=== PATIENT | female | born 1975 ===

== ENCOUNTER 2021-04-05 14:33 | Inpatient (IN) | payer BC ==
[~2021-04-05] VITALS: Ht 154.9 cm; Wt 75.0 kg
[2021-04-05] MEDS ORDERED: methylPREDNISolone SOD SUCC 125 MG/2 ML VL IV ONE (15:15)
[2021-04-05 16:04] LABS: Basophils # (auto) 0 10 ^3/uL (0-0.2); Basophils % (auto) 0.1 % (0.0-2.0); Eosinophils # (auto) 0 10 ^3/uL (0-0.8); Hematocrit 41.3 % (36.0-46.0); Hemoglobin 13.8 g/dL (12.2-16.2); Lymphocytes # (auto) 0.7 10 ^3/uL (0.4-5.4); Mean Corpuscular Hemoglobin 29.8 pg (28.0-32.0); Mean Corpuscular Hgb Conc. 33.5 g/dL (32.0-36.0); Mean Corpuscular Volume 88.8 fL (80.0-100.0); Monocytes # (auto) 0.4 10 ^3/uL (0-1.3); Monocytes % (auto) 5.5 % (0.0-12.0); Neutrophils # (auto) 6.3 10 ^3/uL (1.6-8.6); Neutrophils % (auto) 84.4 % (37.0-80.0); Nucleated Red Blood Cells % 0.2 %; Red Blood Cells 4.65 10^6/uL (4.0-5.20); White Blood Cell 7.4 10^3/uL (4.4-10.8)
[2021-04-05 16:27] LABS: Albumin 3.2 g/dL (3.4-5.0); Calcium 8.1 mg/dL (8.5-10.1); Potassium 3.7 mmol/L (3.5-5.1)
[2021-04-05 16:35] LABS: BUN/Creatinine Ratio 20.9; Bilirubin, Total 0.7 mg/dL (0.2-1.0); CRP High Sensitivity 1.18 mg/dL (< 0.3); Total Protein 7.3 g/dL (6.4-8.2)
[2021-04-05] MEDS ORDERED: AZITHROMYCIN 500MG/ 250ML 250 ML IV ONE (17:00)
[2021-04-05] MEDS ORDERED: CHOLECALCIFEROL (VITD3) 2,000 UNIT CAP/TAB PO ONE (17:00)
[2021-04-05] MEDS ORDERED: ZINC SULFATE 220mg CAP or TAB PO ONE (17:00)
[2021-04-05] MEDS ORDERED: ASCORBIC ACID 500 MG TAB PO ONE (17:00)
[2021-04-05] MEDS ORDERED: LACTULOSE 20Gm/30ML SOLN PO PRN (19:00)
[2021-04-05] MEDS ORDERED: diphenhdrAMINE HCL 50 MG/1 ML VL IV PRN (19:00)
[2021-04-05] MEDS ORDERED: DEXTROSE (50%) 50ML SYRG IV PRN (19:00)
[2021-04-05] MEDS ORDERED: ACETAMINOPHEN 500 MG TAB PO PRN (19:00)
[2021-04-05] MEDS ORDERED: PROMETHAZINE HCL 25 MG/ML 1ML IV PRN (19:00)
[2021-04-05] MEDS ORDERED: NITROGLYCERIN 0.4 MG SL TAB SL PRN (19:00)
[2021-04-05] MEDS ORDERED: MORPHINE SULFATE INJECTION 2 MG/ML SYRG IV PRN (19:00)
[2021-04-05] MEDS: SODIUM CHLORIDE 0.9% 1,000 ML IV SCH (20:20)
[2021-04-05] MEDS: cefTRIAXone 1GM/50ML D5W 50 ML IV SCH ×2 (20:28→23:00)
[2021-04-05] MEDS: BUDESONIDE (INHALATION) 180 MCG IH IN SCH (22:00)
[2021-04-05] MEDS: ACCU-CHEK COMFORT CURVE STRIP VI SCH (22:10)
[2021-04-05] MEDS: ENOXAPARIN SOD 40 MG/0.4 ML SYRINGE SC SCH (22:10)
[2021-04-05] MEDS: InsuLIN REG 1unit/0.01ml Soln (100units/ml) SC SCH (22:15)
[2021-04-06 00:54] VITALS: BP 148/78
[2021-04-06] MEDS: traMADol HCL 50 MG TAB PO PRN ×2 (01:02→06:15)
[2021-04-06] MEDS: TEMAZEPAM 15 MG CAP PO PRN (02:00)
[2021-04-06 07:20] LABS: Basophils # (auto) 0 10 ^3/uL (0-0.2); Basophils % (auto) 0.1 % (0.0-2.0); Eosinophils # (auto) 0 10 ^3/uL (0-0.8); Hematocrit 41.4 % (36.0-46.0); Lymphocytes # (auto) 0.5 10 ^3/uL (0.4-5.4); Lymphocytes % (auto) 9.8 % (10.0-50.0); Mean Corpuscular Hemoglobin 29.8 pg (28.0-32.0); Mean Corpuscular Hgb Conc. 33.9 g/dL (32.0-36.0); Mean Corpuscular Volume 88.1 fL (80.0-100.0); Monocytes # (auto) 0.3 10 ^3/uL (0-1.3); Monocytes % (auto) 5.2 % (0.0-12.0); Neutrophils # (auto) 4.7 10 ^3/uL (1.6-8.6); Neutrophils % (auto) 84.9 % (37.0-80.0); Nucleated Red Blood Cells % 0.2 %; Red Cell Distribution Width 14.1 % (11.8-14.3); White Blood Cell 5.6 10^3/uL (4.4-10.8)
[2021-04-06 07:21] LABS: Calcium 8.2 mg/dL (8.5-10.1); Potassium 3.8 mmol/L (3.5-5.1)
[2021-04-06 07:24] LABS: BUN/Creatinine Ratio 18.5; Bilirubin, Total 0.7 mg/dL (0.2-1.0); Total Protein 7.2 g/dL (6.4-8.2)
[2021-04-06] MEDS: ACCU-CHEK COMFORT CURVE STRIP VI SCH ×4 (07:58→21:28)
[2021-04-06] MEDS: InsuLIN REG 1unit/0.01ml Soln (100units/ml) SC SCH ×4 (08:17→22:22)
[2021-04-06] MEDS: ENOXAPARIN SOD 40 MG/0.4 ML SYRINGE SC SCH ×2 (10:06→21:27)
[2021-04-06] MEDS: SODIUM CHLORIDE 0.9% 1,000 ML IV SCH (10:06)
[2021-04-06] MEDS: DexAMETHasone SOD PHOS 10MG/1ML VIAL INJ IV SCH (10:06)
[2021-04-06] MEDS: ZINC SULFATE 220mg CAP or TAB PO SCH (10:06)
[2021-04-06] MEDS: CHOLECALCIFEROL (VITD3) 2,000 UNIT CAP/TAB PO SCH (10:06)
[2021-04-06] MEDS: ASCORBIC ACID 1,000 MG TAB PO SCH (10:06)
[2021-04-06] MEDS: IVERMECTIN 3 MG TAB PO SCH (11:18)
[2021-04-06] MEDS: BUDESONIDE (INHALATION) 180 MCG IH IN SCH ×2 (11:28→19:20)
[2021-04-06] MEDS: ALBUTEROL SULF HFA 90MCG INH 200DOSE IN PRN ×2 (11:28→19:20)
[2021-04-06] MEDS ORDERED: ALBU108A5 IN (11:44)
[2021-04-06] MEDS ORDERED: AMLO-496 PO (11:44)
[2021-04-06 14:05] LABS: Hepatitis A Ab IgM Negative
[2021-04-06] MEDS ORDERED: IOHEXOL 350 MG/ML 100ML IJ ONE (14:19)
[2021-04-06 14:21] LABS: Hepatitis B Core IgM Negative
[2021-04-06 14:28] LABS: Hepatitis C Antibody Negative (Negative)
[2021-04-06] MEDS ORDERED: REMDESIVIR 200 MG in NS 210ml LOADING DOSE ADULT IV ONE (15:00)
[2021-04-06 15:52] VITALS: BP 122/79
[2021-04-06] MEDS: HYDROcodone-ACET 5/325MG TAB PO PRN ×2 (16:50→22:21)
[2021-04-06 20:00] VITALS: BP 117/55
[2021-04-06] MEDS: cefTRIAXone 1GM/50ML D5W 50 ML IV SCH (21:27)
[2021-04-06 22:00] VITALS: BP 117/45
[2021-04-06] MEDS ORDERED: ENOXAPARIN SOD 80 MG/0.8ML SYRINGE SC SCH (22:00)
[2021-04-06] MEDS ORDERED: TOCILIZUMAB 400 MG in SODIUM CHL 0.9% 80 ML IV SCH (22:00)
[2021-04-06] MEDS: AZITHROMYCIN 500MG/ 250ML 250 ML IV SCH (22:21)
[2021-04-07] MEDS: HYDROcodone-ACET 5/325MG TAB PO PRN ×4 (03:40→23:30)
[2021-04-07 05:00] VITALS: BP 137/68
[2021-04-07] MEDS: ACCU-CHEK COMFORT CURVE STRIP VI SCH ×4 (06:14→23:00)
[2021-04-07] MEDS: InsuLIN REG 1unit/0.01ml Soln (100units/ml) SC SCH ×4 (06:15→23:00)
[2021-04-07 06:27] LABS: Potassium 3.3 mmol/L (3.5-5.1)
[2021-04-07 06:43] LABS: Albumin 2.8 g/dL (3.4-5.0); BUN/Creatinine Ratio 19.6; Bilirubin, Total 0.7 mg/dL (0.2-1.0); Calcium 8.1 mg/dL (8.5-10.1); Total Protein 6.8 g/dL (6.4-8.2)
[2021-04-07] MEDS: BUDESONIDE (INHALATION) 180 MCG IH IN SCH ×2 (06:49→21:48)
[2021-04-07] MEDS: ALBUTEROL SULF HFA 90MCG INH 200DOSE IN PRN ×2 (06:49→21:48)
[2021-04-07] MEDS ORDERED: ALPR0.5T7 PO (06:59)
[2021-04-07] MEDS: DexAMETHasone SOD PHOS 10MG/1ML VIAL INJ IV SCH (08:46)
[2021-04-07] MEDS: ENOXAPARIN SOD 40 MG/0.4 ML SYRINGE SC SCH ×2 (08:46→23:30)
[2021-04-07] MEDS: ZINC SULFATE 220mg CAP or TAB PO SCH (08:47)
[2021-04-07] MEDS: CHOLECALCIFEROL (VITD3) 2,000 UNIT CAP/TAB PO SCH (08:48)
[2021-04-07] MEDS: ASCORBIC ACID 1,000 MG TAB PO SCH (08:48)
[2021-04-07] MEDS: IVERMECTIN 3 MG TAB PO SCH (08:48)
[2021-04-07 09:00] VITALS: BP 107/59
[2021-04-07] MEDS ORDERED: LORazepam 0.5 MG TAB PO PRN (09:15)
[2021-04-07] MEDS ORDERED: PANTOPRAZOLE 40 MG TAB PO ONE (10:45)
[2021-04-07] MEDS ORDERED: REMDESIVIR PER PHARMACY 0 ML IV SCH (11:00)
[2021-04-07] MEDS: ALPRAZolam 0.5 MG TAB PO PRN (11:11)
[2021-04-07 12:30] VITALS: BP 107/68
[2021-04-07] MEDS ORDERED: REMDESIVIR 200 MG in NS 210ml LOADING DOSE ADULT IV ONE (13:00)
[2021-04-07] MEDS ORDERED: REMDESIVIR 100mg 100 MG in SODIUM CHL 0.9% 230 ML IV SCH (15:00)
[2021-04-07 16:53] VITALS: BP 117/64
[2021-04-07 20:36] VITALS: BP 106/56
[2021-04-07] MEDS: cefTRIAXone 1GM/50ML D5W 50 ML IV SCH (23:00)
[2021-04-07] MEDS: INSULIN LANTUS (GLARGINE) 1 /0.01ml (100units/ml) SC SCH (23:00)
[2021-04-07] MEDS: AZITHROMYCIN 500MG/ 250ML 250 ML IV SCH (23:30)
[2021-04-08] MEDS: ALPRAZolam 0.5 MG TAB PO PRN ×2 (01:15→09:49)
[2021-04-08 04:15] VITALS: BP 100/59
[2021-04-08] MEDS: HYDROcodone-ACET 5/325MG TAB PO PRN ×3 (05:12→22:29)
[2021-04-08] MEDS: guaiFENesin-DM 100/10mg/5ml SYR PO PRN ×2 (06:39→12:39)
[2021-04-08] MEDS: ACCU-CHEK COMFORT CURVE STRIP VI SCH ×4 (06:39→21:46)
[2021-04-08] MEDS: InsuLIN REG 1unit/0.01ml Soln (100units/ml) SC SCH ×4 (06:40→22:33)
[2021-04-08] MEDS: ALBUTEROL SULF HFA 90MCG INH 200DOSE IN PRN ×2 (07:19→19:11)
[2021-04-08] MEDS: BUDESONIDE (INHALATION) 180 MCG IH IN SCH ×2 (07:20→19:10)
[2021-04-08 08:01] LABS: Albumin 2.9 g/dL (3.4-5.0); BUN/Creatinine Ratio 16.7; Calcium 7.7 mg/dL (8.5-10.1); Potassium 3.4 mmol/L (3.5-5.1)
[2021-04-08 08:38] VITALS: BP 111/81
[2021-04-08] MEDS: ENOXAPARIN SOD 40 MG/0.4 ML SYRINGE SC SCH ×2 (09:47→21:46)
[2021-04-08] MEDS: DexAMETHasone SOD PHOS 10MG/1ML VIAL INJ IV SCH (09:47)
[2021-04-08] MEDS: CHOLECALCIFEROL (VITD3) 2,000 UNIT CAP/TAB PO SCH (09:48)
[2021-04-08] MEDS: IVERMECTIN 3 MG TAB PO SCH (09:48)
[2021-04-08] MEDS: POTASSIUM CHL 20 Meq TABLET PO SCH (09:48)
[2021-04-08] MEDS: PANTOPRAZOLE 40 MG TAB PO SCH (09:48)
[2021-04-08] MEDS: FUROSEMIDE 20 MG TAB PO SCH (10:00)
[2021-04-08 12:59] VITALS: BP 123/69
[2021-04-08] MEDS: REMDESIVIR 100mg 100 MG in SODIUM CHL 0.9% 230 ML IV SCH (15:13)
[2021-04-08] MEDS ORDERED: HYDROcodone-ACET 5/325MG TAB PO PRN (15:45)
[2021-04-08] MEDS ORDERED: HYDROcodone-ACET 5/325MG TAB ONE (15:50)
[2021-04-08] MEDS ORDERED: HYDR-4072 PO (17:17)
[2021-04-08 17:20] VITALS: BP 117/68
[2021-04-08 21:15] VITALS: BP 117/69
[2021-04-08] MEDS: cefTRIAXone 1GM/50ML D5W 50 ML IV SCH (21:45)
[2021-04-08] MEDS: INSULIN LANTUS (GLARGINE) 1 /0.01ml (100units/ml) SC SCH (22:34)
[2021-04-08] MEDS: AZITHROMYCIN 500MG/ 250ML 250 ML IV SCH (23:22)
[2021-04-09] MEDS: guaiFENesin-DM 100/10mg/5ml SYR PO PRN ×3 (04:05→21:50)
[2021-04-09 04:41] VITALS: BP 108/58
[2021-04-09] MEDS: ACCU-CHEK COMFORT CURVE STRIP VI SCH ×4 (06:03→21:53)
[2021-04-09] MEDS: InsuLIN REG 1unit/0.01ml Soln (100units/ml) SC SCH ×4 (06:05→21:52)
[2021-04-09] MEDS: HYDROcodone-ACET 5/325MG TAB PO PRN ×3 (06:10→21:50)
[2021-04-09] MEDS: THROAT LOZENGES(CEPASTAT) MT PRN (06:11)
[2021-04-09] MEDS: BUDESONIDE (INHALATION) 180 MCG IH IN SCH ×2 (07:35→20:17)
[2021-04-09] MEDS: ALBUTEROL SULF HFA 90MCG INH 200DOSE IN PRN ×2 (07:35→23:23)
[2021-04-09 09:00] VITALS: BP 100/65
[2021-04-09] MEDS: DexAMETHasone SOD PHOS 10MG/1ML VIAL INJ IV SCH (09:00)
[2021-04-09] MEDS: POTASSIUM CHL 20 Meq TABLET PO SCH (09:00)
[2021-04-09] MEDS: PANTOPRAZOLE 40 MG TAB PO SCH (09:01)
[2021-04-09] MEDS: CHOLECALCIFEROL (VITD3) 2,000 UNIT CAP/TAB PO SCH (09:01)
[2021-04-09] MEDS: FUROSEMIDE 20 MG TAB PO SCH (09:01)
[2021-04-09] MEDS: ENOXAPARIN SOD 40 MG/0.4 ML SYRINGE SC SCH ×2 (09:02→21:20)
[2021-04-09] MEDS: IVERMECTIN 3 MG TAB PO SCH (09:02)
[2021-04-09] MEDS ORDERED: INSULIN LANTUS (GLARGINE) 1 /0.01ml (100units/ml) SC SCH (10:00)
[2021-04-09] MEDS: REMDESIVIR 100mg 100 MG in SODIUM CHL 0.9% 230 ML IV SCH (15:17)
[2021-04-09 16:59] VITALS: BP 126/86
[2021-04-09] MEDS ORDERED: DEXTROSE (50%) 50ML SYRG IV PRN (19:45)
[2021-04-09] MEDS: cefTRIAXone 1GM/50ML D5W 50 ML IV SCH (21:19)
[2021-04-09] MEDS: INSULIN LANTUS (GLARGINE) 1 /0.01ml (100units/ml) SC SCH (21:52)
[2021-04-09 22:00] VITALS: BP 104/72
[2021-04-09] MEDS: AZITHROMYCIN 500MG/ 250ML 250 ML IV SCH (23:06)
[2021-04-10] MEDS: guaiFENesin-DM 100/10mg/5ml SYR PO PRN ×2 (03:41→10:03)
[2021-04-10] MEDS: HYDROcodone-ACET 5/325MG TAB PO PRN ×3 (03:41→19:22)
[2021-04-10 05:00] VITALS: BP 120/59
[2021-04-10 06:46] LABS: Basophils # (auto) 0 10 ^3/uL (0-0.2); Eosinophils # (auto) 0 10 ^3/uL (0-0.8); Eosinophils % (auto) 0.5 % (0.0-7.0); Hematocrit 39.4 % (36.0-46.0); Hemoglobin 13.3 g/dL (12.2-16.2); Lymphocytes # (auto) 0.7 10 ^3/uL (0.4-5.4); Lymphocytes % (auto) 8.6 % (10.0-50.0); Mean Corpuscular Hemoglobin 29.8 pg (28.0-32.0); Mean Corpuscular Hgb Conc. 33.7 g/dL (32.0-36.0); Mean Corpuscular Volume 88.4 fL (80.0-100.0); Monocytes # (auto) 0.3 10 ^3/uL (0-1.3); Monocytes % (auto) 3.1 % (0.0-12.0); Neutrophils # (auto) 7.2 10 ^3/uL (1.6-8.6); Neutrophils % (auto) 87.8 % (37.0-80.0); Red Blood Cells 4.46 10^6/uL (4.0-5.20); Red Cell Distribution Width 14.3 % (11.8-14.3); White Blood Cell 8.2 10^3/uL (4.4-10.8)
[2021-04-10] MEDS: ACCU-CHEK COMFORT CURVE STRIP VI SCH ×4 (06:49→22:00)
[2021-04-10] MEDS: InsuLIN REG 1unit/0.01ml Soln (100units/ml) SC SCH ×4 (06:51→22:07)
[2021-04-10 06:57] LABS: Albumin 2.6 g/dL (3.4-5.0); Calcium 8.2 mg/dL (8.5-10.1); Potassium 4.1 mmol/L (3.5-5.1)
[2021-04-10 07:24] LABS: BUN/Creatinine Ratio 16.7; Bilirubin, Total 0.4 mg/dL (0.2-1.0); Total Protein 6.2 g/dL (6.4-8.2)
[2021-04-10 09:27] VITALS: BP 99/54
[2021-04-10] MEDS: DexAMETHasone SOD PHOS 10MG/1ML VIAL INJ IV SCH (10:00)
[2021-04-10] MEDS: POTASSIUM CHL 20 Meq TABLET PO SCH (10:00)
[2021-04-10] MEDS: CHOLECALCIFEROL (VITD3) 2,000 UNIT CAP/TAB PO SCH (10:01)
[2021-04-10] MEDS: PANTOPRAZOLE 40 MG TAB PO SCH (10:01)
[2021-04-10] MEDS: ENOXAPARIN SOD 40 MG/0.4 ML SYRINGE SC SCH ×2 (10:01→21:59)
[2021-04-10] MEDS: IVERMECTIN 3 MG TAB PO SCH (10:01)
[2021-04-10] MEDS: INSULIN LANTUS (GLARGINE) 1 /0.01ml (100units/ml) SC SCH ×2 (10:02→22:06)
[2021-04-10] MEDS: FUROSEMIDE 20 MG TAB PO SCH (10:04)
[2021-04-10] MEDS: BUDESONIDE (INHALATION) 180 MCG IH IN SCH ×2 (10:13→21:49)
[2021-04-10] MEDS: ALBUTEROL SULF HFA 90MCG INH 200DOSE IN PRN ×2 (10:13→21:50)
[2021-04-10 12:52] VITALS: BP 105/52
[2021-04-10] MEDS: REMDESIVIR 100mg 100 MG in SODIUM CHL 0.9% 230 ML IV SCH (16:20)
[2021-04-10] MEDS: guaiFENesin-CODEINE Liq 5 ML UD PO PRN ×2 (16:41→22:05)
[2021-04-10 17:00] VITALS: BP 95/59
[2021-04-10] MEDS: cefTRIAXone 1GM/50ML D5W 50 ML IV SCH (21:59)
[2021-04-10] MEDS: AZITHROMYCIN 500MG/ 250ML 250 ML IV SCH (21:59)
[2021-04-10 22:00] VITALS: BP 107/66
[2021-04-10] MEDS: THROAT LOZENGES(CEPASTAT) MT PRN (22:05)
[2021-04-11] MEDS: THROAT LOZENGES(CEPASTAT) MT PRN ×5 (02:05→20:09)
[2021-04-11] MEDS: guaiFENesin-CODEINE Liq 5 ML UD PO PRN ×4 (02:05→20:09)
[2021-04-11] MEDS: HYDROcodone-ACET 5/325MG TAB PO PRN ×2 (04:49→11:18)
[2021-04-11 05:00] VITALS: BP 111/69
[2021-04-11] MEDS: ACCU-CHEK COMFORT CURVE STRIP VI SCH ×4 (06:10→22:27)
[2021-04-11] MEDS: InsuLIN REG 1unit/0.01ml Soln (100units/ml) SC SCH ×4 (06:10→22:47)
[2021-04-11 07:46] LABS: Albumin 2.5 g/dL (3.4-5.0); Calcium 7.9 mg/dL (8.5-10.1); Potassium 4.1 mmol/L (3.5-5.1)
[2021-04-11 07:49] LABS: BUN/Creatinine Ratio 19.7; Bilirubin, Total 0.4 mg/dL (0.2-1.0); Total Protein 6.2 g/dL (6.4-8.2)
[2021-04-11 09:00] VITALS: BP 121/75
[2021-04-11] MEDS: DexAMETHasone SOD PHOS 10MG/1ML VIAL INJ IV SCH (09:29)
[2021-04-11] MEDS: POTASSIUM CHL 20 Meq TABLET PO SCH (09:29)
[2021-04-11] MEDS: CHOLECALCIFEROL (VITD3) 2,000 UNIT CAP/TAB PO SCH (09:30)
[2021-04-11] MEDS: FUROSEMIDE 20 MG TAB PO SCH (09:30)
[2021-04-11] MEDS: ENOXAPARIN SOD 40 MG/0.4 ML SYRINGE SC SCH ×2 (09:30→22:27)
[2021-04-11] MEDS: PANTOPRAZOLE 40 MG TAB PO SCH (09:30)
[2021-04-11] MEDS: BUDESONIDE (INHALATION) 180 MCG IH IN SCH ×2 (10:00→23:27)
[2021-04-11] MEDS: INSULIN LANTUS (GLARGINE) 1 /0.01ml (100units/ml) SC SCH ×2 (11:26→22:48)
[2021-04-11 12:43] LABS: Cholesterol 86 mg/dL (< 200); HDL Cholesterol 29 mg/dL (40-59); LDL Cholesterol 47 mg/dL (< 100); Triglycerides 162 mg/dL (< 150)
[2021-04-11 13:00] VITALS: BP 111/67
[2021-04-11] MEDS: REMDESIVIR 100mg 100 MG in SODIUM CHL 0.9% 230 ML IV SCH (14:48)
[2021-04-11] MEDS: ALBUTEROL SULF HFA 90MCG INH 200DOSE IN PRN (15:10)
[2021-04-11 17:00] VITALS: BP 102/71
[2021-04-11] MEDS ORDERED: InsuLIN REG 1unit/0.01ml Soln (100units/ml) SC ONE (17:45)
[2021-04-11 22:00] VITALS: BP 142/68
[2021-04-11] MEDS: cefTRIAXone 1GM/50ML D5W 50 ML IV SCH (22:27)
[2021-04-12] MEDS: THROAT LOZENGES(CEPASTAT) MT PRN ×4 (00:17→19:46)
[2021-04-12] MEDS: guaiFENesin-CODEINE Liq 5 ML UD PO PRN ×5 (00:17→22:35)
[2021-04-12] MEDS: ALBUTEROL SULF HFA 90MCG INH 200DOSE IN PRN ×2 (00:21→19:49)
[2021-04-12 00:46] VITALS: BP 142/68
[2021-04-12 00:48] LABS: Urine WBC None Seen /hpf (0 - 5)
[2021-04-12 01:10] LABS: Urine Bacteria NONE SEEN /hpf (None Seen); Urine Blood Negative /uL (Negative); Urine Specific Gravity 1.029 (1.001-1.035)
[2021-04-12] MEDS: HYDROcodone-ACET 5/325MG TAB PO PRN ×3 (03:08→16:40)
[2021-04-12 05:00] VITALS: BP 107/69
[2021-04-12] MEDS: ACCU-CHEK COMFORT CURVE STRIP VI SCH ×4 (05:47→21:55)
[2021-04-12] MEDS: InsuLIN REG 1unit/0.01ml Soln (100units/ml) SC SCH ×4 (05:49→22:20)
[2021-04-12] MEDS: BUDESONIDE (INHALATION) 180 MCG IH IN SCH ×2 (06:58→19:49)
[2021-04-12] MEDS: POTASSIUM CHL 20 Meq TABLET PO SCH (09:03)
[2021-04-12] MEDS: DexAMETHasone SOD PHOS 10MG/1ML VIAL INJ IV SCH (09:03)
[2021-04-12] MEDS: CHOLECALCIFEROL (VITD3) 2,000 UNIT CAP/TAB PO SCH (09:04)
[2021-04-12] MEDS: PANTOPRAZOLE 40 MG TAB PO SCH (09:04)
[2021-04-12] MEDS: FUROSEMIDE 20 MG TAB PO SCH (09:04)
[2021-04-12] MEDS: ENOXAPARIN SOD 40 MG/0.4 ML SYRINGE SC SCH ×2 (09:05→21:55)
[2021-04-12] MEDS: INSULIN LANTUS (GLARGINE) 1 /0.01ml (100units/ml) SC SCH ×2 (09:05→22:20)
[2021-04-12 10:26] VITALS: BP 100/66
[2021-04-12 13:15] VITALS: BP 116/73
[2021-04-12] MEDS ORDERED: INSULIN LISPRO (HUMAN) 100 UNITS/ML ML SC ONE (16:15)
[2021-04-12] MEDS: GABAPENTIN 100 MG CAP PO SCH (21:55)
[2021-04-12 22:00] VITALS: BP 129/68
[2021-04-12] MEDS: cefTRIAXone 1GM/50ML D5W 50 ML IV SCH (22:32)
[2021-04-13] MEDS: HYDROcodone-ACET 5/325MG TAB PO PRN ×4 (00:27→22:28)
[2021-04-13] MEDS: guaiFENesin-CODEINE Liq 5 ML UD PO PRN ×4 (03:58→22:24)
[2021-04-13 05:00] VITALS: BP 96/55
[2021-04-13] MEDS: THROAT LOZENGES(CEPASTAT) MT PRN ×4 (05:10→19:08)
[2021-04-13] MEDS: BUDESONIDE (INHALATION) 180 MCG IH IN SCH ×2 (06:12→21:00)
[2021-04-13] MEDS: ALBUTEROL SULF HFA 90MCG INH 200DOSE IN PRN ×2 (06:12→21:00)
[2021-04-13] MEDS: ACCU-CHEK COMFORT CURVE STRIP VI SCH ×4 (06:31→21:46)
[2021-04-13] MEDS: InsuLIN REG 1unit/0.01ml Soln (100units/ml) SC SCH ×5 (06:31→21:51)
[2021-04-13 09:00] VITALS: BP 95/64
[2021-04-13] MEDS: DexAMETHasone SOD PHOS 10MG/1ML VIAL INJ IV SCH (09:55)
[2021-04-13] MEDS: CHOLECALCIFEROL (VITD3) 2,000 UNIT CAP/TAB PO SCH (09:55)
[2021-04-13] MEDS: PANTOPRAZOLE 40 MG TAB PO SCH (09:55)
[2021-04-13] MEDS: POTASSIUM CHL 20 Meq TABLET PO SCH (09:55)
[2021-04-13] MEDS: ENOXAPARIN SOD 40 MG/0.4 ML SYRINGE SC SCH ×2 (09:56→21:52)
[2021-04-13] MEDS: FUROSEMIDE 20 MG TAB PO SCH (09:56)
[2021-04-13] MEDS: INSULIN LANTUS (GLARGINE) 1 /0.01ml (100units/ml) SC SCH (10:25)
[2021-04-13 11:48] LABS: Basophils # (auto) 0 10 ^3/uL (0-0.2); Basophils % (auto) 0.2 % (0.0-2.0); Eosinophils # (auto) 0 10 ^3/uL (0-0.8); Eosinophils % (auto) 0.3 % (0.0-7.0); Hematocrit 40.8 % (36.0-46.0); Hemoglobin 13.6 g/dL (12.2-16.2); Lymphocytes # (auto) 0.7 10 ^3/uL (0.4-5.4); Lymphocytes % (auto) 8.8 % (10.0-50.0); Mean Corpuscular Hemoglobin 29.9 pg (28.0-32.0); Mean Corpuscular Hgb Conc. 33.3 g/dL (32.0-36.0); Mean Corpuscular Volume 89.6 fL (80.0-100.0); Monocytes # (auto) 0.4 10 ^3/uL (0-1.3); Monocytes % (auto) 4.6 % (0.0-12.0); Neutrophils % (auto) 86.1 % (37.0-80.0); Nucleated Red Blood Cells % 0.1 %; Red Blood Cells 4.55 10^6/uL (4.0-5.20); Red Cell Distribution Width 14.4 % (11.8-14.3); White Blood Cell 8.2 10^3/uL (4.4-10.8)
[2021-04-13 12:16] LABS: Potassium 4.2 mmol/L (3.5-5.1)
[2021-04-13 12:20] LABS: BUN/Creatinine Ratio 18.5; Calcium 8.3 mg/dL (8.5-10.1)
[2021-04-13 13:00] VITALS: BP 108/64
[2021-04-13 17:00] VITALS: BP 105/78
[2021-04-13 20:00] VITALS: BP 101/62
[2021-04-13] MEDS: cefTRIAXone 1GM/50ML D5W 50 ML IV SCH (21:52)
[2021-04-13] MEDS: GABAPENTIN 100 MG CAP PO SCH (21:52)
[2021-04-13] MEDS ORDERED: INSULIN LANTUS (GLARGINE) 1 /0.01ml (100units/ml) SC SCH (22:00)
[2021-04-14] MEDS: TEMAZEPAM 15 MG CAP PO PRN ×2 (02:58→22:29)
[2021-04-14 05:00] VITALS: BP 115/56
[2021-04-14] MEDS: ACCU-CHEK COMFORT CURVE STRIP VI SCH ×4 (06:28→21:30)
[2021-04-14] MEDS: InsuLIN REG 1unit/0.01ml Soln (100units/ml) SC SCH ×4 (06:30→21:33)
[2021-04-14] MEDS: BUDESONIDE (INHALATION) 180 MCG IH IN SCH ×2 (07:17→21:17)
[2021-04-14] MEDS: ALBUTEROL SULF HFA 90MCG INH 200DOSE IN PRN ×2 (07:17→21:17)
[2021-04-14] MEDS: metFORMIN HYDROCHLORIDE 850 MG TAB PO SCH ×2 (08:32→17:11)
[2021-04-14] MEDS: DexAMETHasone SOD PHOS 10MG/1ML VIAL INJ IV SCH (08:33)
[2021-04-14] MEDS: POTASSIUM CHL 20 Meq TABLET PO SCH (08:33)
[2021-04-14] MEDS: PANTOPRAZOLE 40 MG TAB PO SCH (08:36)
[2021-04-14] MEDS: FUROSEMIDE 20 MG TAB PO SCH (08:36)
[2021-04-14] MEDS: CHOLECALCIFEROL (VITD3) 2,000 UNIT CAP/TAB PO SCH (08:37)
[2021-04-14] MEDS: guaiFENesin-CODEINE Liq 5 ML UD PO PRN ×3 (08:38→18:35)
[2021-04-14] MEDS: ENOXAPARIN SOD 40 MG/0.4 ML SYRINGE SC SCH ×2 (08:39→21:34)
[2021-04-14 09:00] VITALS: BP 112/74
[2021-04-14] MEDS ORDERED: INSULIN LANTUS (GLARGINE) 1 /0.01ml (100units/ml) SC SCH (10:00)
[2021-04-14] MEDS: HYDROcodone-ACET 5/325MG TAB PO PRN ×2 (11:00→17:12)
[2021-04-14] MEDS ORDERED: ERGOCALCIFEROL 50,000 UNIT(1.25MG) CAP PO SCH (12:00)
[2021-04-14 13:00] VITALS: BP 121/90
[2021-04-14 17:00] VITALS: BP 110/80
[2021-04-14 20:00] VITALS: BP 118/55
[2021-04-14 21:31] VITALS: BP 118/55
[2021-04-14] MEDS: GABAPENTIN 100 MG CAP PO SCH (21:34)
[2021-04-14] MEDS ORDERED: ATORVASTATIN 20 MG TAB PO SCH (22:00)
[2021-04-15] MEDS: guaiFENesin-CODEINE Liq 5 ML UD PO PRN ×2 (00:58→10:28)
[2021-04-15] MEDS: HYDROcodone-ACET 5/325MG TAB PO PRN ×2 (04:22→12:51)
[2021-04-15 05:30] VITALS: BP 106/67
[2021-04-15] MEDS: ACCU-CHEK COMFORT CURVE STRIP VI SCH ×2 (06:31→12:54)
[2021-04-15] MEDS: InsuLIN REG 1unit/0.01ml Soln (100units/ml) SC SCH ×2 (06:33→12:58)
[2021-04-15 07:26] LABS: Calcium 8.5 mg/dL (8.5-10.1); Potassium 4.6 mmol/L (3.5-5.1)
[2021-04-15 07:32] LABS: Albumin 2.9 g/dL (3.4-5.0); BUN/Creatinine Ratio 24.7; Bilirubin, Total 0.4 mg/dL (0.2-1.0); Total Protein 6.3 g/dL (6.4-8.2)
[2021-04-15 08:00] VITALS: BP 113/74
[2021-04-15 09:00] VITALS: BP 113/74
[2021-04-15] MEDS: ALBUTEROL SULF HFA 90MCG INH 200DOSE IN PRN (09:30)
[2021-04-15] MEDS: BUDESONIDE (INHALATION) 180 MCG IH IN SCH (09:30)
[2021-04-15] MEDS: CHOLECALCIFEROL (VITD3) 2,000 UNIT CAP/TAB PO SCH (09:42)
[2021-04-15] MEDS: PANTOPRAZOLE 40 MG TAB PO SCH (09:42)
[2021-04-15] MEDS: POTASSIUM CHL 20 Meq TABLET PO SCH (09:43)
[2021-04-15] MEDS: FUROSEMIDE 20 MG TAB PO SCH (09:43)
[2021-04-15] MEDS: metFORMIN HYDROCHLORIDE 850 MG TAB PO SCH (09:44)
[2021-04-15] MEDS: DexAMETHasone SOD PHOS 10MG/1ML VIAL INJ IV SCH (09:44)
[2021-04-15] MEDS: ENOXAPARIN SOD 40 MG/0.4 ML SYRINGE SC SCH (09:44)
[2021-04-15 15:40] VITALS: BP 113/74
== END 2021-04-15 16:49 | disposition home or self-care (01) | DRG 177 ==
LOC: ER 14:33 → TELE 18:47 → TELE-E-ADS 04-06 15:54 → TELE-EAST 04-09 12:51
PROVIDERS: ADMIT Internal Medicine; ATTEND Internal Medicine
PROC: XW033E5 Introduction of Remdesivir Anti-infective into Peripheral Vein, Percutaneous Approach, New Technology Group 5 (ICD-10-PCS; principal; 2021-04-07)
DX: U07.1 COVID-19 (principal); J96.00 Acute respiratory failure, unspecified whether with hypoxia or hypercapnia; J12.82 Pneumonia due to coronavirus disease 2019; I10 Essential (primary) hypertension; J45.909 Unspecified asthma, uncomplicated; D89.839 Cytokine release syndrome, grade unspecified; E11.65 Type 2 diabetes mellitus with hyperglycemia; K76.0 Fatty (change of) liver, not elsewhere classified; R79.89 Other specified abnormal findings of blood chemistry; E66.9 Obesity, unspecified; Z80.9 Family history of malignant neoplasm, unspecified; Z68.32 Body mass index [BMI] 32.0-32.9, adult; Z83.3 Family history of diabetes mellitus; Z90.49 Acquired absence of other specified parts of digestive tract
CPT/HCPCS: 36415; 36600; 71045; 71275; 76705; 80048; 80053; 80061; 80074; 81001; 82043; 82306; 82728; 82805; 82962; 83036; 84443; 84702; 85025; 85379; 86141; 86850; 86900; 86901; 87426; 93005; 93970; 94640; 96365; 96375; G0378; J0696; J1100; J1815

== ENCOUNTER 2024-05-25 14:44 | Emergency (ER) | payer BC ==
[~2024-05-25] VITALS: Ht 182.9 cm; Wt 76.8 kg
[~2024-05-25 14:44] MED LIST: ALBU108A5 IN; ALPR0.5T7 PO; AMLO1TAB23 PO; HYDR-4072 PO
[2024-05-25 16:27] LABS: COVID19 ANTIGEN SOFIA FIA NEGATIVE (NEGATIVE); Rapid Influenza B Negative (Negative)
[2024-05-25 16:28] VITALS: BP 133/81; PULSE 89; RESP 20; TEMP 98.2; O2SAT 92
[2024-05-25 16:31] LABS: Rapid Influenza A Positive (Negative)
--- NOTE | 2024-05-25 16:33 | ED.PDOC ---
SOB-HPI HPI Comments A 49 YEAR OLD FEMALE PRESENTS TO THE ED WITH COMPLAINT OF COUGH. PATIENT STATES SHE HAS BEEN EXPERIENCING A COUGH, CONGESTION, AND BODY ACHES FOR THE PAST 4 DAYS. PATIENT REPORTS SHE TESTED POSITIVE FOR COVID-19 3 DAYS AGO AND WAS PRESCRIBED PAXLOVID AND PREDNISONE, BUT NOTES IT HAS NOT BEEN HELPING HER COUGH. PATIENT NOTES SHE HAS A HISTORY OF PNEUMONIA AND WOULD LIKE TO HAVE A CHEST X RAY DONE TO SEE IF SHE HAS PNEUMONIA AGAIN. PATIENT DENIES FEVER, CHILLS, SHORTNESS OF BREATH, CHEST PAIN, ABDOMINAL PAIN, NAUSEA, VOMITING, HEADACHE, OR OTHER COMPLAINTS. NO OTHER SYMPTOMS OR MODIFYING FACTORS AT THIS TIME. PATIENT IS ALERT, ORIENTED X 4, AND HAS STEADY GAIT. Chief Complaint: Flu like Time Seen by MD: 15:18 Reviewed notes: Nurses Notes, Medications, Allergies Information Source: Patient Mode of Arrival: Ambulatory Severity: Moderate Timing: Days Duration: Since onset, Days Context: Spontaneous Onset PE Risk Factors: None History of: None Prehospital treatment: None Modifying Factors: Nothing Associated Signs and Symptoms: Cough, Nasal Congestion If cough with SOB: Productive Past Medical History PAST MEDICAL HISTORY: Asthma, DM, HTN Surgical History: Appendectomy [employer] History: Denies all [employer] Hx Family History Family History: Reviewed,noncontributory to illness, Family hx of DM, Family hx of Cancer Social History Smoker: Non-Smoker Alcohol: Occasionally Drugs: Denies Drug Use Lives In: Home Constitutional: reports: others (ANXIOUS ); denies: chills, diaphoresis, fatigue, fever, malaise, sweats, weakness EENTM: reports: nose congestion; denies: blurred vision, double vision, ear bleeding, ear discharge, ear drainage, ear pain, ear ringing, eye pain, eye redness, hearing loss, mouth pain, mouth swelling, nasal discharge, nose bleeding, nose pain, photophobia, tearing, throat pain, throat swelling, voice changes, others Respiratory: reports: cough; denies: hemoptysis, orthopnea, SOB at rest, shortness of breath, SOB with excertion, stridor, wheezing, others Cardiovascular: denies: chest pain, dizzy spells, diaphoresis, Dyspnea on exertion, edema, irregular heart beat, left arm pain, lightheadedness, palpitations, PND, syncope, others Gastrointestinal: denies: abdomen distended, abdominal pain, blood streaked bowels, constipated, diarrhea, dysphagia, difficulty swallowing, hematemesis, m jazz, nausea, poor appetite, poor fluid intake, rectal bleeding, rectal pain, vomiting, others Genitourinary: denies: abnormal vagina bleeding, burning, dyspareunia, dysuria, flank pain, frequency, hematuria, incontinence, pain, , vagina discharge, urgency, others Neurological: denies: dizziness, fainting, headache, left sided numbness, left sided weakness, numbness, paresthesia, pre-existing deficit, right sided numbness, right sided weakness, seizure, speech problems, tingling, tremors, weakness, others Musculoskeletal: reports: muscle pain; denies: back pain, gout, joint pain, joint swelling, muscle stiffness, neck pain, others Integumetry: denies: bruises, change in color, change in hair/nails, dryness, laceration, lesions, lumps, rash, wounds, others Allergic/Immunocompromised: denies: Difficulty Healing, Frequent Infections, Hives, Itching, others Hematologic/Lymphatic: denies: anemia, blood clots, easy bleeding, easy bruising, swollen glands, others Endocrine: denies: excessive hunger, excessive sweating, excessive thirst, excessive urination, flushing, intolerance to cold, intolerance to heat, unexplained weight gain, unexplained weight loss, others Psychiatric: denies: anxiety, bipolar disorder, depression, hopeless, panic disorder, schizophrenia, sleepless, suicidal, others All Other Systems: Reviewed and Negative Physical Exam General Appearance: Mild Distress, Obese HEENT: Normal ENT Inspection, PERRL/EOMI, Pharynx Normal, TMs Normal Neck: Full Range of Motion, Non-Tender, Normal, Normal Inspection Respiratory: Chest Non-Tender, Lungs Clear, No Accessory Muscle Use, No Respiratory Distress, Normal Breath Sounds Cardiovascular: No Edema, No JVD, No Murmur, No Gallop, Normal Peripheral Pulses, Regular Rate/Rhythm Breast Exam: Deferred Gastrointestinal: No Organomegaly, Non Tender, No Pulsatile Mass, Normal Bowel Sounds, Soft Genitalia: Deferred Pelvic: Deferred Rectal: Deferred Extremities: No calf tenderness, Normal capillary refill, Normal inspection, Normal range of motion, Non-tender, No pedal edema Musculoskeletal : Apperance: Normal Neurologic: Alert, melter assistant II-XII nml as Tested, No Motor Deficits, Normal Affect, Normal Mood, No Sensory Deficits Cerebellar Function: Normal Reflexes: Normal Skin: Dry, Normal Color, Warm Peripheral Pulses: 2+ carotid (R), 2+ carotid (L) Lymphatic: No Adenopathy Was a procedure done? Was a procedure done?: No Differential Dx Differential Diagnosis: Bronchitis, Pneumonia, Sinusitis, Allergic Rhinitis, Ot itis Media, Pharyngitis, URI X-Ray, Labs, Meds, VS Vital Signs Date Time Temp Pulse Resp B/P (MAP) Pulse Ox O2 Delivery O2 Flow Rate FiO2 05/25/24 16:28 98.2 89 20 133/81 (98) 92 98.2 05/25/24 16:28 89 20 92 Room Air 05/25/24 16:16 97.3 100 22 159/94 (115) 98 05/25/24 15:23 98.2 89 20 133/81 (98) 93 Lab Test 05/25/24 00:00 Range/Units Influenza Type A Antigen Positive Negative Influenza Type B Antigen Negative Negative SARS-CoV-2 Antigen (Rapid) Negative NEGATIVE PATIENT: WAI GUTIERREZCCT: [id number]: [id number] : 1975 LOC: ER ROOM / BED: / AGE / SEX: 49 / F ADM STATUS: REG ER SERVICE 27 ORDERING PHYSICIAN: FABY DAWSON PROCEDURE(s): CXR2 - CHEST TWO VIEWS ROUTINE REASON: COUGH ORDER NUMBER(s): [id number], ACCESSION NUMBER(s): [id number] EXAM: XY CHEST TWO VIEWS ROUTINE CLINICAL HISTORY: COUGH COMPARISON: None TECHNIQUE: Frontal and lateral view of the chest was obtained FINDINGS: Lines and Tubes: None Lungs: No focal consolidation. Are scattered areas of parenchymal scarring versus atelectasis in the bilateral mid and lower lungs. Pleura: No effusion. No pneumothorax. Cardiomediastinal contours: Unremarkable Pulmonary vasculature: Within normal limits. Bones: No acute osseous abnormality. IMPRESSION: 1. No acute cardiopulmonary disease. HS:Y ATED BY: DANI NGUYEN MD DICTATED DATE/TIME: 05/25/24 1643 SIGNED BY: DANI NGUYEN MD SIGNED DATE/TIME: 05/25/24 4966 CC: X-Ray, Labs, Meds, VS Comment EXTERNAL MEDICAL RECORDS REVIEWED: [NONE] INDEPENDENT HISTORIANS: [NONE] SOCIAL DETERMINANTS OF HEALTH: [NONE] LABS ORDERED: INFLUENZA A/B, COVID-19 ANTIGEN REVIEWED AND INTERPRETED RESULTS: INFLUENZA A POSITIVE IMAGING ORDERED: XR CHEST TREATMENTS ORDERED: PROCEDURES PERFORMED: NONE CRITICAL CARE TIME: NONE I HAVE DISCUSSED THE PATIENT WITH THE ATTENDING PHYSICIAN DR. STEVENSON AND HE AGREES WITH THE PATIENT'S PLAN OF CARE AND DISPOSITION. BASED ON HISTORY OF PRESENT ILLNESS, AND PHYSICAL EXAM, PATIENT WILL BE DISC HARGED HOME. DISCUSSED PLAN FOR DISCHARGE HOME WITH RX []. MEDICATION WARNINGS GIVEN. SHARED DECISION MAKING: PATIENT INSTRUCTED TO FOLLOW UP WITH PRIMARY CARE PROVIDER IN 1-2 DAYS FOR RE-EVALUATION OF SYMPTOMS. PATIENT VERBALIZES UNDERSTANDING TO RETURN TO ED FOR NEW OR WORSENING SYMPTOMS OR IF FOLLOW UP WITH PCP CANNOT BE OBTAINED. PATIENT FEELS COMFORTABLE GOING HOME AT THIS TIME. ALL QUESTIONS ADDRESSED AT TIME OF DISCHARGE. Images Reviewed?: Images reviewed and evaluated by me Time of 1ST Reevaluation: 17:00 Reevaluation 1ST: Improved Patient Education/Counseling: Diagnosis, Treatment, Need For Follow Up Family Education/Counseling: Diagnosis, Treatment, Need For Follow Up Medical Screening: No EMC Exist At This Time Departure 1 Departure Time of Disposition: 17:00 Impression: Primary Impression: Influenza A Additional Impression: History of COVID-19 Disposition: 01 HOME / SELF CARE / HOMELESS Condition: Stable Additional Instructions: FOLLOW-UP WITH PCP IN 1 TO 2 DAYS. TAKE MEDICATIONS PRESCRIBED. RETURN TO ED FOR ANY NEW OR WORSENING SYMPTOMS. e-Prescriptions Promethazine-Dm (Promethazine Dm 6.25-15 mg/5Ml) 1 Jessica Jessica 5 ML PO TID, #180 ML Prov: FABY DAWSON 05/25/24 Oseltamivir Phosphate (Tamiflu) 75 Mg Cap 75 MG PO BID for 5 Days, #10 CAP Prov: FABY DAWSON 05/25/24 Discharged With: Self Critical Care Note Critical Care Time?: No Stability Stability form required: No Heart Score Heart Score: Heart Score Response (Comments) Value History N/A 0 EKG N/A 0 Age N/A 0 Risk Factors N/A 0 Troponin N/A 0 Total 0 I personally scribed for FABY DAWSON ([email or web address]) on 05/25/24 at 16:33. Electronically submitted by Spencer Morrow ([email or web address]). FABY DAWSON May 25, 2024 16:33
--- NOTE | 2024-05-25 16:44 | DVH ---
EXAM: XY CHEST TWO VIEWS ROUTINE CLINICAL HISTORY: COUGH COMPARISON: None TECHNIQUE: Frontal and lateral view of the chest was obtained FINDINGS: Lines and Tubes: None Lungs: No focal consolidation. Are scattered areas of parenchymal scarring versus atelectasis in the bilateral mid and lower lungs. Pleura: No effusion. No pneumothorax. Cardiomediastinal contours: Unremarkable Pulmonary vasculature: Within normal limits. Bones: No acute osseous abnormality. IMPRESSION: 1. No acute cardiopulmonary disease. HS:Y
[2024-05-25] MEDS ORDERED: TAMIFLU PO (16:52)
[2024-05-25] MEDS ORDERED: PROM1SOL4 PO (16:52)
== END 2024-05-25 16:57 | disposition home or self-care (01) ==
LOC: ER 14:44
DX: J10.1 Influenza due to other identified influenza virus with other respiratory manifestations (principal); J45.909 Unspecified asthma, uncomplicated; E11.9 Type 2 diabetes mellitus without complications; I10 Essential (primary) hypertension; Z90.49 Acquired absence of other specified parts of digestive tract; Z20.822 Contact with and (suspected) exposure to COVID-19
CPT/HCPCS: 36415; 71046; 87426; 87804